=== PATIENT | male | born 1990 | race American Indian/Alaskan Native ===

== ENCOUNTER 2019-06-06 09:02 | Emergency (ER) | payer SELFPAY ==
[~2019-06-06] VITALS: Ht 175.3 cm; Wt 77.3 kg
[2019-06-06] MEDS ORDERED: normal saline 1000ml 1,000 ML IV ONE (09:20)
[2019-06-06] MEDS ORDERED: ibuprofen tablet 400 MG TABLET PO ONE (09:20)
[2019-06-06] MEDS ORDERED: ondansetron 4mg rapidly disintigrating tab PO ONE (09:20)
[2019-06-06 11:09] VITALS: BP 118/58
== END 2019-06-06 11:11 | disposition home or self-care (01) ==
LOC: ER 09:03
DX: B34.9 Viral infection, unspecified (principal); M79.10 Myalgia, unspecified site; R51 Headache
CPT/HCPCS: 87502; 87503; 99283; J7030

== ENCOUNTER 2021-02-19 01:21 | Emergency (ER) | payer OTHER ==
[~2021-02-19] VITALS: Ht 175.3 cm; Wt 79.5 kg
[2021-02-19 01:22] VITALS: BP 152/92
--- NOTE | 2021-02-19 01:30 | NUR ---
pt refuses to answer medical history questions.
== END 2021-02-19 02:00 ==
LOC: ER 01:21
DX: F10.129 Alcohol abuse with intoxication, unspecified (principal); W22.11XA Striking against or struck by driver side automobile airbag, initial encounter; Y93.89 Activity, other specified; Y92.89 Other specified places as the place of occurrence of the external cause; Y99.8 Other external cause status; Y90.9 Presence of alcohol in blood, level not specified
CPT/HCPCS: 99283

== ENCOUNTER 2021-07-01 22:18 | Emergency (ER) | payer SELFPAY ==
[~2021-07-01] VITALS: Ht 175.3 cm; Wt 79.5 kg
[2021-07-01 22:24] VITALS: BP 134/3
--- NOTE | 2021-07-01 22:30 | NUR ---
Patient got up and walked out, did not wait for xray or treatment
== END 2021-07-02 07:28 | disposition left against medical advice (07) ==
LOC: ER 22:19
DX: T14.90XA Injury, unspecified, initial encounter (principal); W18.39XA Other fall on same level, initial encounter; Y93.89 Activity, other specified; Y92.89 Other specified places as the place of occurrence of the external cause; Y99.8 Other external cause status
CPT/HCPCS: 99284

== ENCOUNTER 2022-06-24 22:35 | Emergency (ER) | payer MEDICAID ==
[~2022-06-24] VITALS: Ht 172.7 cm; Wt 77.3 kg
[2022-06-24] MEDS ORDERED: IBUP-1986 PO (23:37)
[2022-06-24] MEDS ORDERED: GABA-530 PO (23:37)
[2022-06-24] MEDS ORDERED: AMOX-101 PO (23:37)
[2022-06-24] MEDS ORDERED: ketorolac trometh inj. 60 MG/2 ML VIAL IM ONE (23:40)
[2022-06-24] MEDS ORDERED: HYDROcodone/acetaminophen 10/325mg tab PO ONE (23:40)
[2022-06-24] MEDS ORDERED: amoxicillin 250mg capsule PO ONE (23:40)
[2022-06-25 00:13] VITALS: BP 144/89
== END 2022-06-25 00:17 | disposition home or self-care (01) ==
LOC: ER 22:36
DX: K08.89 Other specified disorders of teeth and supporting structures (principal)
CPT/HCPCS: 96372; 99283; J1885